=== PATIENT | female | born 1995 | race Caucasian/White ===

== ENCOUNTER 2019-09-16 09:37 | Emergency (ER) | payer OTHER ==
[2019-09-16 11:51] VITALS: BP 121/91
--- NOTE | 2019-09-16 11:54 | UC ---
Throat Pain/Nasal [place]onzo HPI - HPI Summary HPI Summary: 23 yo female presents with neck mass. She tells me that over the last week has had cold symptoms. She has seen her PCP and is currently on amoxicillin for a sinus infection. Yesterday she noticed a large bump/ball to her right neck. She is concerned about this. She had a nodule on her thyroid a few years ago that was thought to be "cancer", but was not per pt. Area today is not painful. Denies fever, weight loss/gain. - History of Current Complaint Chief Complaint: UCUpperExtremity Stated Complaint: NECK COMPLAINT Time Seen by Provider: 09/16/19 11:54 Hx Obtained From: Patient Onset/Duration: Sudden Onset Severity: Mild Pain Intensity: 2 Pain Scale Used: 0-10 Numeric - Allergies/Home Medications Allergies/Adverse Reactions: Allergies Allergy/AdvReac Type Severity Reaction Status Date / Time No Known Allergies Allergy Verified 09/16/19 11:51 Home Medications: Home Medications Acetaminophen [APAP] 650 mg PO ONCE 09/16/19 [History Confirmed 09/16/19] Albuterol HFA INHALER* [Ventolin HFA Inhaler*] 1 puff INH Q4H PRN 09/16/19 [ History Confirmed 09/16/19] Amoxicillin/Clavulanate TAB* [Augmentin TAB 875*] 875 mg PO BID 09/16/19 [ History Confirmed 09/16/19] Naproxen Sodium [Aleve] 220 mg PO 09/16/19 [History] PMH/Surg Hx/FS Hx/Imm Hx Respiratory History: Asthma - Surgical History Surgical History: Yes Surgery Procedure, Year, and Place: T&A age 7 - Family History Known Family History: Positive: None - Social History Occupation: Employed Full-time Lives: With Family Alcohol Use: Occasionally Substance Use Type: None Smoking Status (MU): Never Smoked Tobacco Review of Systems All Other Systems Reviewed And Are Negative: No Constitutional: Positive: Negative Skin: Positive: Negative Eyes: Positive: Negative ENT: Positive: Nasal Discharge, Sinus Congestion, Sinus Pain/Tenderness Respiratory: Positive: Cough Cardiovascular: Positive: Negative Gastrointestinal: Positive: Negative Neurovascular: Positive: Negative Neurological: Positive: Negative Psychological: Positive: Negative Physical Exam - Summary Physical Exam Summary: GENERAL: NAD. WDWN. No pain distress. SKIN: No rashes, sores, lesions, or open wounds. HEENT: Head: AT/NC Eyes: EOM intact. Conjunctiva clear without inflammation or discharge. Ears: Hearing grossly normal. TMs intact, no bulging, erythema, or edema. Nose: Nasal mucosa mildly swollen and erythematous with yellow/ clear discharge. TTP maxillary and frontal sinus. Positive post nasal drip Throat: Posterior oropharynx without exudates, erythema, or tonsillar enlargement. Uvula midline. NECK: Supple. Nontender. RIGHT posterior cervical 2.0cm immobile firm likely lymph node. NTTP. CHEST: CTAB. No r/r/w. No accessory muscle use. Breathing comfortably and in no distress. CV: RRR. Pulses intact. NEURO: Alert. PSYCH: Age appropriate behavior. Triage Information Reviewed: Yes Vital Signs: Initial Vital Signs Temp 98.3 F 09/16/19 11:43 Pulse 95 09/16/19 11:43 Resp 18 09/16/19 11:43 BP 121/91 09/16/19 11:43 Pulse Ox 97 09/16/19 11:43 Vital Signs Reviewed: Yes Diagnostics - Radiology US soft tissue neck Radiology Interpretation Completed By: Radiologist Summary of Radiographic Findings: FINDINGS: In the area of clinical abnormality at level 5 on the right, there is an ovoid hypoechoic nodule measuring 0.6 x 1.7 x 1.8 cm in size. IMPRESSION: INDETERMINATE RIGHT LEVEL 5 LYMPH NODE. Throat Pain/Nasal Course/Dx - Course Course Of Treatment: US as above. Suspect LAD due to her current illness. Advised to monitor the area and if does not decrease in size or becomes painful to be rechecked. Otherwise recheck in 4 weeks with PCP - Differential Dx/Diagnosis Provider Diagnosis: Lymphadenopathy Discharge ED - Sign-Out/Discharge Documenting (check all that apply): Patient Departure All imaging exams completed and their final reports reviewed: Yes - Discharge Plan Condition: Stable Disposition: HOME Patient Education Materials: Lymphadenopathy (ED) Referrals: Mandi Jean MD [Primary Care Provider] - Additional Instructions: If you develop a fever, shortness of breath, chest pain, new or worsening symptoms - please call your PCP or go to the ED immediately. Continue taking your antibiotic The lymph node should reduce in size over the course of the next few weeks. I recommend you be rechecked in 3-4 weeks - Billing Disposition and Condition Condition: STABLE Disposition: Home
== END 2019-09-16 13:01 | disposition home or self-care (01) ==
LOC: UCEAST 09:37
DX: R59.0 Localized enlarged lymph nodes (principal); J45.909 Unspecified asthma, uncomplicated; J34.89 Other specified disorders of nose and nasal sinuses; R05 Cough
CPT/HCPCS: 76536; 99211; G0463